=== PATIENT | female | born 1975 | race Caucasian/White ===

== ENCOUNTER 2025-02-27 14:40 | Emergency (ER) | payer BC, SELFPAY ==
[2025-02-27] VITALS (28 sets, daily range): BP systolic 113–155; BP diastolic 69–110; PULSE 81–110; RESP 7–28; TEMP 37.4; O2SAT 96–100; BMI 38.0
--- OUTSIDE RECORDS SUMMARY | 2025-02-27 14:42 | XMS_ITS | Clinical Summary ---
Author Organization [employer] [facility] Address [address] [place] [address] Care Team Providers Care Oracle Architect Name Role Phone Kavya Sharif MD Primary Care Provider [phone] Allergies No known active allergies Medications MedicationSigDispense QuantityRefillsLast FilledStart DateEnd DateStatus Adapalene 0.3 % topical gel APPLY PEA SIZE AMOUNT TO FACE DPQLWCH28/24/2025Active losartan (COZAAR) 25 mg tablet Indications:Essential hypertensionTake 1 Tablet (25 mg) by mouth once daily. 93 Tablet 5Active polyethylene glycol-electrolyte (GOLYTELY) 236-22.74-6.74 -5.86 gram suspension Indications:Encounter for screening colonoscopyDrink 2 liters (half the bottle) the day before the procedure and 2 liters (half the bottle) 6 hours prior to procedure. 4000 mL 5Active Active Problems ProblemNoted DateDiagnosed DateAcne aqcymegc36/06/2025Essential hypertension 5ASCUS of cervix with negative high risk HPV11/27/2023 Overview (01/06/2025): 2006, 2008 NIL paps 2009 ASCUS pap, neg HPV 2009, 2010 NIL Paps 2013 NIL pap, neg HPV 18 NIL pap, neg HPV 11/27/23 ASCUS pap, Neg HPV.. Plan cotest in 3 years 12/04/23 Result note sent via [employer]. Pt read results Obesity (BMI 30.0-34.9)11/18/2018 Encounters DateTypeDepartmentCare MugcGnynmabdwol60/18/2025Orders Only [facility] [address] [facility] [place] [address] Kavya Sharif MD 1 scan: (1-Ord) [facility]02/16/2025 7:36 AM EDUCATION SUPERVISOR - 02/16/2025 11:59 PM CSTHospital Encounter Dk Fox MD 02/16/2025Orders Only [facility] [address] [place] [address] Dk Fox MD <No scans attached>02/16/2025Surgery [facility] [address] [place] [address] [place] [address] Dk Fxo MD Glqocbeznur18/04/2025Telephone [facility] [address] [facility] [place] [address] Dk Fox MD Appointment Reminder (Colonoscopy on 02/16/[address] [facility]) 01/20/2025 10:00 AM CSTOffice Visit [facility] [address] [facility] [place] [address] Kavya Sharif MD Follow Up (medication/)01/20/20250159Dlavtj52/19/6741Ryjbog78/11/2025Telephone [facility] [address] [facility] [place] [address] Dk Fox MD Ikianphvu73/06/2025 11:15 AM CSTOffice Visit [facility] [address] [facility] [place] [address] Kavya Sharif MD Physical (Blood pressure)01/06/2025Travelfrom Last 3 Months Immunizations ImmunizationAdministration DatesNext DueInfluenza A (H1N1), Live Intranasal 02/20/2009Influenza Virus, Wnyubqaflbd58/07/2013,02/09/2010Influenza, IIV3 (Age >=3 years)01/09/2012,12/17/2010Influegiana, VTI694/06/2015ALEX GiffordV3 Live Intranasal (Flumist)01/22/2008Tdap103/08/2024,11/10/2010,10/10/2010Zoster (Shingrix-RZV, recombinant)01/06/2025 Family History Medical HistoryRelationNameCommentsFuchs' dystrophyFatherHypertensionFather HypertensionMotherGeneticOtherHTN, Migraines-Mom~Lazy eye-DadFuchs' dystrophy Paternal GrandmotherRelationNameStatusCommentsFatherMotherOtherPaternal Grandmother Social History Tobacco UseTypesPacks/DayYears UsedDateSmoking Tobacco: NeverPassive Smoke Exposure: NeverSmokeless Tobacco: Never Tobacco Cessation:Counseling Given: Not Answered PHQ-2AnswerDate RecordedPHQ-2 TOTAL ZHHUM59503/08/2024Social ConnectionsAnswerDate RecordedDo you often feel lonely or isolated from those around you? Alcohol UseAnswerDate RecordedHow often do you have a drink containing alcohol?1 01/06/2025How many drinks containing alcohol do you have on a typical day when you are drinking?How often do you have five or more drinks on one occasion?Financial Resource StrainAnswerDate RecordedDifficulty of Paying Living Ffgebxvh572/19/2025Difficulty of Paying Living ExpensesNot on file 01/19/2025Food InsecurityAnswerDate RecordedDo you worry your food will run out before you are able to buy more?Transportation NeedsAnswerDate RecordedDoes lack of transportation keep you from medical appointments?1 01/19/2025Does lack of transportation keep you from work, meetings or getting things that you need?Housing StabilityAnswerDate RecordedWhat is your housing situation today?UtilitiesAnswerDate RecordedDo you have trouble paying for utilities (for example, heat, electricity, water, phone)?1 01/19/2025CommentsNoSex and Gender InformationValueDate RecordedSex Assigned at BirthNot on fileLegal ZlnXpthbm03/14/2013 5:31 AM CSTGender Identity Not on fileSexual OrientationNot on file Last Filed Vital Signs Vital SignReadingTime TakenCommentsBlood Ldnzjvyr288/8201/20/2025 10:06 AM EDUCATION SUPERVISOR Mnacn927301/20/2025 10:06 AM CBSIitjvbakphm49.8 ??C (98.2 ??F)01/20/2025 10:06 AM CSTRespiratory Hlnn998510/19/2003 12:00 AM CDTOxygen Rmssdqrhqw69%01/20/2025 10:06 AM CSTInhaled Oxygen Concentration--Nomhjy917.5 kg (252 lb 6.4 oz)01/20/2025 10:06 AM UBFJkzevi816.7 cm (5' 8)01/20/2025 10:06 AM CSTBody Mass Index38.38 01/20/2025 10:06 AM EDUCATION SUPERVISOR Plan of Treatment Health MaintenanceDue DateLast DoneCommentsHepatitis C screening for age 18-79 1992Hepatitis B series for 19+ (1 of 3 - 19+ 3-dose series)1993 Pneumococcal series for age 50+ (1 of 1 - PCV)2024OVID-19 vaccine series (3 - 2024- season), 12/01/2020Influenza Vaccine (#1) /06/2015, 01/07/2013, 01/09/2012, Additional history existsZoster (shingles) series for age 50+ (2 of 2)Mammogram for age 40-75006/28/ (Verified in Care Everywhere or Patient Record) Depression screening for age 12+MI (ht and wt on same day) for age 18+, 01/06/2025Pap test for age 21-6510/05/2026 12/04/2023 (Verified in Care Everywhere or Patient Record), 11/18/2018 (Verified in Care Everywhereor Patient Record), 11/30/2004, Additional history exists Lipids for age 45-75Tetanus bklrkeh44/06/25247303/08/2024, 11/10/2010, 10/10/2010Colonoscopy through age 755104/19/2024, 02/16/2025 RSV vaccine for adults or (1 - 1-dose 75+ series)2049HIV for age 15-84Vqninaldx41/02/2007 (Verified in Care Everywhere or Patient Record) Overridden with the intention of not completing the topic Procedures Procedure NamePriorityDate/TimeAssociated DiagnosisCommentsCOLONOSCOPY SCREENING Vwtgdia5802/16/2025 12:00 AM EDUCATION SUPERVISOR Screening for colon cancer MACTFIHZHOwfxfsi16/20/2025 10:42 AM EDUCATION SUPERVISOR Essential hypertension PSXLZWHREFAvepcgv85/20/2025 10:42 AM EDUCATION SUPERVISOR Essential hypertension KYIXobgowy26/06/2025 12:32 PM EDUCATION SUPERVISOR Amenorrhea TESTOSTERONE,ONTXZXenaqav85/06/2025 12:32 PM EDUCATION SUPERVISOR Acne vulgaris TSH WITH GSWVGVHjelsva88/06/2025 12:32 PM EDUCATION SUPERVISOR Amenorrhea HEMOGLOBIN P9DOwvggep69/06/2025 12:32 PM EDUCATION SUPERVISOR Diabetes mellitus screening LIPID PANEL W REFLEX MEASURED CQVEunxyhy12/06/2025 12:32 PM EDUCATION SUPERVISOR Lipid screening URINALYSIS VBZZULRTATBNfhrhhy34/06/2025 12:32 PM EDUCATION SUPERVISOR Essential hypertension URINALYSIS MACROSCOPIC - [facility] ONLY POC DIP (QUEST)Kzpilbo2501/06/2025 12:32 PM EDUCATION SUPERVISOR Essential hypertension COMP METABOLIC YDUSAYhjttod13/06/2025 12:32 PM EDUCATION SUPERVISOR Essential hypertension GYNECOLOGICAL UQRAXDpzwt84/30/2005 3:06 PM CDT SURGICAL PROCEDURE (TYPE PROCEDURE DESCRIPTION BELOW) Encounter for screening colonoscopy from Last 3 Months or Most Recently Relevant to Health Maintenance Results * COLONOSCOPY SCREENING [[id number]] (02/16/2025 12:00 AM EDUCATION SUPERVISOR) Narrative Authorizing ProviderResult TypeResult StatusKavya PALMER PROCEDURE ORD Final Result * POTASSIUM (01/20/2025 10:42 AM EDUCATION SUPERVISOR)ComponentValueRef RangeTest MethodAnalysis TimePerformed AtPathologist SignaturePOTASSIUM4.63.5 - 5.3 mmol/L103/23/2024 3:32 AM CSTQUEST DIAGNOSTICSSpecimen (Source)Anatomical Location / Laterality Collection Method / VolumeCollection TimeReceived TimeBloodBLOOD SPECIMEN / UnknownQuest Collect / Twzscnw2201/20/2025 10:42 AM CST01/20/2025 10:42 AM EDUCATION SUPERVISOR Narrative Authorizing ProviderResult TypeResult Kristel Sharif MDCHEMISTRYFinal ResultPerforming OrganizationAddressCity/State/ZIP CodePhone Number [facility] [address] [address], * CREATININE (01/20/2025 10:42 AM EDUCATION SUPERVISOR)ComponentValueRef RangeTest MethodAnalysis TimePerformed AtPathologist SignatureCREATININE0.880.50 - 1.03 mg/dL 01/21/2025 3:32 AM CSTQUEST LPXWUBHEDPERQWM02> OR = 60 mL/min/1.64q87401/21/2025 3:32 AM CSTQUEST DIAGNOSTICSSpecimen (Source)Anatomical Location / Laterality Collection Method / VolumeCollection TimeReceived TimeBloodBLOOD SPECIMEN / UnknownQuest Collect / Udhxpxm7201/20/2025 10:42 AM CST01/20/2025 10:42 AM EDUCATION SUPERVISOR Narrative Authorizing ProviderResult TypeResult StatusKavya Sharif MDCHEMISTRYFinal ResultPerforming OrganizationAddressCity/State/ZIP CodePhone Number [facility] [address] [place] [address], [place] [phone] * (ABNORMAL) POCT Urinalysis Dipstick Only [[id number]] (01/06/2025 12:32 PM EDUCATION SUPERVISOR) ComponentValueRef RangeTest MethodAnalysis TimePerformed AtPathologist SignatureSPECIFIC GRAVITY1.0251.001 - 1.9471101/06/2025 12:44 PM [facility] OSOFYJEYVITDYOBFXESGSGWZRCNEQ99/06/2025 12:44 PM CSTMINERS' COLFAX MEDICAL CENTERGLUCOSENEGATIVENEGATIVE01/06/2025 12:44 PM [facility]ENTERKETONESNEGATIVENEGATIVE01/06/2025 12:44 PM [facility] CENTERBILIRUBINNEGATIVENEGATIVE01/06/2025 12:44 PM [facility] CENTEROCCULT BLOODTRACE(A)ZJCDLTXN10/06/2025 12:44 PM EDUCATION SUPERVISOR [facility] CENTERNITRITENEGATIVENEGATIVE01/06/2025 12:44 PM EDUCATION SUPERVISOR [facility] CLINICPH5.55.0 - 8.011 12:44 PM [facility] CENTERLEUKOCYTE ZNJOCKNEFBHEWDIXENQWIUGQ10/06/2025 12:44 PM [facility]ITALpecimen (Source)Anatomical Location / LateralityCollection Method / VolumeCollection TimeReceived TimeUrineURINE SPECIMEN / UnknownNon-Blood / Wdbfvhu2201/06/2025 12:32 PM CST01/06/2025 12:32 PM EDUCATION SUPERVISOR Narrative Authorizing ProviderResult TypeResult StatusRobyn Rosa Sharif MDURINEFinal ResultPerforming OrganizationAddressCity/State/ZIP CodePhone Number [facility] [address] [place] [address], [place] [phone] [address], [place] [phone] * (ABNORMAL) HEMOGLOBIN A1C (01/06/2025 12:32 PM EDUCATION SUPERVISOR)ComponentValueRef RangeTest MethodAnalysis TimePerformed AtPathologist SignatureHEMOGLOBIN A1C5.7(H)<5.7 %01/07/2025 3:52 AM CSTQUEST DIAGNOSTICSComment: For someone without known diabetes, a hemoglobin A1c value between 5.7% and 6.4% is consistent with prediabetes and should be confirmed with a follow-up test. For someone with known diabetes, a value <7% indicates that their diabetes is well controlled. A1c targets should be individualized based on duration of diabetes, age, comorbid conditions, and other considerations. This assay result is consistent with an increased risk of diabetes. Currently, no consensus exists regarding use of hemoglobin A1c for diagnosis of diabetes for children. Specimen (Source)Anatomical Location / LateralityCollection Method / Volume Collection TimeReceived TimeBloodBLOOD SPECIMEN / UnknownQuest Collect / Unknown 01/06/2025 12:32 PM CST01/06/2025 12:32 PM EDUCATION SUPERVISOR Narrative Authorizing ProviderResult TypeResult StatusRobyn Rosa Chante MDCHEMISTRYFinal ResultPerforming OrganizationAddressCity/State/ZIP CodePhone Number [facility] [address] [address], * TSH WITH REFLEX (01/06/2025 12:32 PM EDUCATION SUPERVISOR)ComponentValueRef RangeTest Method Analysis TimePerformed AtPathologist [facility] HospitalTS W/REFLEX TO FT42.07mIU/L 01/07/2025 4:19 AM CSTQUEST DIAGNOSTICSComment: ?Reference Range ? > or = 20 Years 0.40-4.50 ? Ranges ?First trimester ?0.26-2.66 ?Second trimester ?? 0.55-2.73 ?Third trimester ?0.43-2.91 Specimen (Source)Anatomical Location / LateralityCollection Method / Volume Collection TimeReceived TimeBloodBLOOD SPECIMEN / UnknownQuest Collect / Unknown 01/06/2025 12:32 PM CST01/06/2025 12:32 PM EDUCATION SUPERVISOR Narrative Authorizing ProviderResult TypeResult StatusRobyn Rosa Heglsharan MDCHEMISTRYFinal ResultPerforming OrganizationAddressCity/State/ZIP CodePhone Number [facility] [address] [place] [address], * (ABNORMAL) LIPID PANEL W REFLEX MEASURED LDL (01/06/2025 12:32 PM EDUCATION SUPERVISOR) ComponentValueRef RangeTest MethodAnalysis TimePerformed AtPathologist SignatureCHOLESTEROL, QMTGX347(H)<200 mg/dL01/07/2025 3:46 AM CSTQUEST JJHYXOQKVBNOAVBZQXWRVLKL913(H)<150 mg/dL01/07/2025 3:46 AM CSTQUEST DIAGNOSTICSHDL FMLXDUKSTXL89> OR = 50 mg/dL01/07/2025 3:46 AM CSTQUEST DIAGNOSTICSNON HDL BQWASRGWKBI851(H)<130 mg/dL (calc)01/07/2025 3:46 AM EDUCATION SUPERVISOR [facility]NOSTICSComment: For patients with diabetes plus 1 major ASCVD risk factor, treating to a non-HDL-C goal of <100 mg/dL (LDL-C of <70 mg/dL) is considered a therapeutic option. CHOL/HDLC RATIO4.6<5.0 (calc)01/07/2025 3:46 AM CSTQUEST DIAGNOSTICS LDL-ZVJPFLNKNMK182(H)mg/dL (calc)01/07/2025 3:46 AM CSTQUEST DIAGNOSTICSComment: Reference range: <100 Desirable range <100 mg/dL for primary prevention; <70 mg/dL for patients with CHD or diabetic patients with > or = 2 CHD risk factors. LDL-C is now calculated using the Dk-Heather calculation, which is a validated novel method providing better accuracy than the Friedewald equation in the estimation of LDL-C. Dk VELARDE et al. SAMI. 2013;310(19): 1797-4902 (http://education.[employer]faq/QWY574) Specimen (Source)Anatomical Location / LateralityCollection Method / Volume Collection TimeReceived TimeBloodBLOOD SPECIMEN / UnknownQuest Collect / Unknown 01/06/2025 12:32 PM CST01/06/2025 12:32 PM EDUCATION SUPERVISOR Narrative Authorizing ProviderResult TypeResult StatusRobyn Rosa Sharif MDCHEMISTRYFinal ResultPerforming OrganizationAddressCity/State/ZIP CodePhone Number [facility] [address] [place] [address], * URINALYSIS MICROSCOPIC [53020.1] - routine (01/06/2025 12:32 PM EDUCATION SUPERVISOR)Component ValueRef RangeTest MethodAnalysis TimePerformed AtPathologist SignatureRBC0-2 0-2, None Seen /HPF01/07/2025 12:09 AM CSTNOXUBEE GENERAL HOSPITALCENTRAL GZJJYYEESRHLO4-10-6, 3-5, None Seen /HPF01/07/2025 12:09 AM CSTNOXUBEE GENERAL HOSPITALCENTRAL LABORATORYBACTERIARareNone Seen, Rare, Few Bacteria/HPF 01/07/2025 12:09 AM CSTNOXUBEE GENERAL HOSPITALCENTRAL LABORATORYEPITHELIAL CELLSFewNone Seen, Few Epi/HPF01/07/2025 12:09 AM [facility] CENTRAL LABORATORYHYALINE CASTS0-20-2, 3-5 /LPF103/09/2024 12:09 AM [facility] LABORATORYSpecimen (Source)Anatomical Location / LateralityCollection Method / VolumeCollection TimeReceived TimeUrineURINE SPECIMEN / UnknownNon-Blood / Zfxejye0901/06/2025 12:32 PM CST01/06/2025 12:32 PM EDUCATION SUPERVISOR Narrative Authorizing ProviderResult TypeResult StatusRobyn Rosa Sharif MDURINEFinal ResultPerforming OrganizationAddressCity/State/ZIP CodePhone Number [facility] [address] [address], * TESTOSTERONE,TOTAL (01/06/2025 12:32 PM EDUCATION SUPERVISOR)ComponentValueRef RangeTest Method Analysis TimePerformed AtPathologist SignatureTESTOSTERONE, TOTAL, MS312 - 45 ng/dL01/10/2025 3:32 PM CSTQUEST DIAGNOSTICSComment: For additional information, please refer to https://education.[employer]/faq/TotalTestosteroneLCMSMS (This link is being provided for informational/educational purposes only.) (Note) This test was developed and its analytical performance characteristics have been determined by [facility]. It has not been cleared or approved by the FDA. This assay has been validated pursuant to the CLIA regulations and is used for clinical purposes. [facility] [address] [facility] [address] [place] [address] Vignesh Ryan MD, PhD Specimen (Source)Anatomical Location / LateralityCollection Method / Volume Collection TimeReceived TimeBloodBLOOD SPECIMEN / UnknownQuest Collect / Unknown 01/06/2025 12:32 PM CST01/06/2025 12:32 PM EDUCATION SUPERVISOR Narrative Authorizing ProviderResult TypeResult StatusRobyn Rosa Hegland MDCHEMISTRYFinal ResultPerforming OrganizationAddressty/State/ZIP CodePhone Number [facility] [address] [place] [address], * FSH (01/06/2025 12:32 PM EDUCATION SUPERVISOR)ComponentValueRef RangeTest MethodAnalysis Time Performed AtPathologist ExwnmnrylXQB24.8mIU/mL01/07/2025 4:19 AM CSTQUEST DIAGNOSTICSComment: ?Reference Range ? Follicular Phase ? 2.5-10.2 ? Mid-cycle Peak ? 3.1-17.7 ? Luteal Phase ? 1.5- 9.1 ? Postmenopausal ? 23.0-116.3 ? Specimen (Source)Anatomical Location / LateralityCollection Method / Volume Collection TimeReceived TimeBloodBLOOD SPECIMEN / UnknownQuest Collect / Unknown 01/06/2025 12:32 PM CST01/06/2025 12:32 PM EDUCATION SUPERVISOR Narrative Authorizing ProviderResult TypeResult StatusRobyn Rosa Hegland MDCHEMISTRYFinal ResultPerforming OrganizationAddressty/State/ZIP CodePhone Number [facility] [address] [place] [address], [place] [phone] * (ABNORMAL) COMP METABOLIC PANEL (01/06/2025 12:32 PM EDUCATION SUPERVISOR)ComponentValueRef RangeTest MethodAnalysis TimePerformed AtPathologist UgmpecbeyGEQKAS219765 - 146 mmol/L103/09/2024 3:46 AM CSTQUEST DIAGNOSTICSPOTASSIUM4.53.5 - 5.3 mmol/L 01/07/2025 3:46 AM CSTQUEST KCSHSFCFGVHYVKLPORC92566 - 110 mmol/L103/09/2024 3:46 AM CSTQUEST DIAGNOSTICSCARBON OLQYNAU7157 - 32 mmol/L103/09/2024 3:46 AM CSTQUEST IBSCILCWPERNRARCFB6467 - 99 mg/dL01/07/2025 3:46 AM CSTQUEST DIAGNOSTICSComment: ? Fasting reference interval OBJEOKZ39.08.6 - 10.4 mg/dL01/07/2025 3:46 AM CSTQUEST DIAGNOSTICSCREATININE0.91 0.50 - 1.03 mg/dL01/07/2025 3:46 AM CSTQUEST DIAGNOSTICSBUN/CREATININE RATIOSEE NOTE:6 - 22 (calc)01/07/2025 3:46 AM CSTQUEST DIAGNOSTICSComment: ?? Not Reported: BUN and Creatinine are within ?? reference range. ? EGFR77> OR = 60 mL/min/1.72g76701/07/2025 3:46 AM CSTQUEST DIAGNOSTICSALBUMIN5.0 3.6 - 5.1 g/dL01/07/2025 3:46 AM CSTQUEST DIAGNOSTICSPROTEIN, TOTAL8.06.1 - 8.1 g/dL01/07/2025 3:46 AM CSTQUEST DIAGNOSTICSBILIRUBIN, TOTAL0.60.2 - 1.2 mg/dL 01/07/2025 3:46 AM CSTQUEST DIAGNOSTICSALKALINE PJAPLBHDNIC3782 - 153 U/L 01/07/2025 3:46 AM CSTQUEST CMFMALYWGWEXXR78(H)6 - 29 U/L103/09/2024 3:46 AM EDUCATION SUPERVISOR [facility] KSOFXSJLLFFCOE6164 - 35 U/L103/09/2024 3:46 AM CSTQUEST DIAGNOSTICSUREA NITROGEN (BUN)197 - 25 mg/dL01/07/2025 3:46 AM CSTQUEST DIAGNOSTICSGLOBULIN3.0 1.9 - 3.7 g/dL (calc)01/07/2025 3:46 AM CSTQUEST DIAGNOSTICSALBUMIN/GLOBULIN RATIO1.71.0 - 2.5 (calc)01/07/2025 3:46 AM CSTQUEST DIAGNOSTICSSpecimen (Source) Anatomical Location / LateralityCollection Method / VolumeCollection Time Received TimeBloodBLOOD SPECIMEN / UnknownQuest Collect / Ativkcr7601/06/2025 12:32 PM CST01/06/2025 12:32 PM EDUCATION SUPERVISOR Narrative Authorizing ProviderResult TypeResult StatusRobyn Rosa Hegland MDCHEMISTRYFinal ResultPerforming OrganizationAddressCity/State/ZIP CodePhone Number [facility] [address] [place] [address], * GYNECOLOGICAL PANEL (11/30/2004 3:06 PM CDT)ComponentValueRef RangeTest Method Analysis TimePerformed AtPathologist SignatureCYTOLOGY??CYTOPATHOLOGY REPORT ??[facility] ??[facility] [address] [place] [address] ? Status: Final Report ?[id number] ?? CLINICAL INFORMATION ?Reason for Visit ?: Routine ?LMP ? : 01/19/04 ?Previous PAP Test ? : Yes ?Previous PAP Date ? : 03/2004 ?Previous PAP Dx ? : Negative ?Previous Colposcopy/Bx: Not specified ?Hormone Usage ? : Not given ?Additional Data ? : 6 weeks ?HPV Request ? : Reflex HPV test if PAP Dx ASCUS ?? SPECIMEN SOURCE ?: Cervical/vaginal thin, screening ?? SPECIMEN ADEQUACY ?: Satisfactory for evaluation No endocervical ?component seen in a patient. ? INTERPRETATION/RESULT: ?Negative for intraepithelial lesion or malignancy. ?Organisms ?Fungal organisms morphologically consistent with Geeta species ? Cytology 1st Screener : ??ll ?? Signed by: ? ll ?? NOTE: The Pap test is a screening technique, not a diagnostic ?? procedure. It is used primarily to screen for squamous cancers and ?? precursor lesions. Published studies have shown that it is subject to ?? both false negative and false positive results. The pap test should ?? not be used as the sole means to diagnose or exclude pre-malignant and ?? malignant lesions. ?? COLLECTED: 11/30/04 ?? ACCESSIONED: 12/03/04 ?? SIGNED: 12/10/04[facility]ITALpecimen (Source)Anatomical Location / LateralityCollection Method / VolumeCollection TimeReceived Time11/30/2004 3:06 PM CDT1 6:51 AM CDT Narrative Authorizing ProviderResult TypeResult StatusCaroline Uzma Reinoso MD PATHOLOGY/CYTOLOGYFinal ResultPerforming OrganizationAddressCity/State/ZIP Code Phone Number [facility] INTERNAL ZIP [address] [address] from Last 3 Months or Most Recently Relevant to Health Maintenance Insurance [place] [address] Care Teams Team MemberRelationshipSpecialtyStart DateEnd Date Kavya Sharif MD [address] [place] [address] PCP - GeneralFamily Ebooraiv73/6/25
--- OUTSIDE RECORDS SUMMARY | 2025-02-27 14:42 | XMS_ITS | Clinical Summary ---
Author Organization [facility] Address [address] [place] [address]. [place] [address] Care Team Providers Care Tinter Photograph Name Role Phone Frw, None Unavailable Unavailable No Ref-Primary, Physician Primary Care Provider Anjali Dave Jodie DO Unavailable [phone] Allergies No known active allergies Medications MedicationSigDispense QuantityRefillsLast FilledStart DateEnd DateStatus norethindrone-ethinyl estradiol-iron () 1.5-30 MG-MCG tablet Indications:Routine general medical examination at a health care facilityTake 1 tablet by mouth daily 84 tablet ctive Additional Information Patient not taking.Reported on 11/27/2023 Active Problems ProblemNoted DateDiagnosed DateASCUS of cervix with negative high risk HPV 11/27/2023 Overview (12/04/2023): 2005, 2008 NIL paps 2009 ASCUS pap, neg HPV 2009, 2010 NIL Paps 2013 NIL pap, neg HPV 11/18/18 NIL pap, neg HPV 11/27/23 ASCUS pap, Neg HPV.. Plan cotest in 3 years 12/04/23 Result note sent via [employer]. Pt read results Obesity (BMI 30.0-34.9)11/18/2018Encounter for supervision of other normal edsqyhrmj58/29/2007 Overview (01/02/2015): Diagnosis updated by automated process. Provider to review and confirm. GROUP B STREPTOCOCCUS DRQHHXN5712/08/2006 Overview (12/08/2006): +GBS with initial UA: Antibiotics per protocol in labor Immunizations ImmunizationAdministration DatesNext DueTDAP Vaccine (Adacel)10/10/2010 Family History Medical HistoryRelationCommentsHypertensionMaternal GrandfatherHypertension Maternal GrandmotherCerebrovascular DiseasePaternal GrandfatherDiabetesPaternal GrandfatherHypertensionPaternal GrandfatherHypertensionPaternal Grandmother Alzheimer DiseaseNo family hx ofBreast CancerNo family hx ofCancerNo family hx ofCancer - colorectalNo family hx ofHeart DiseaseNo family hx ofThyroid Disease No family hx ofreviewed 02/07/2006RelationStatusCommentsBrotherAliveFatherAlive Maternal GrandfatherMaternal GrandmotherMotherAlivePaternal GrandfatherPaternal Grandmother Social History Tobacco UseTypesPacks/DayYears UsedDateSmoking Tobacco: NeverSmokeless Tobacco: Never Tobacco Cessation:Counseling Given: No Alcohol UseStandard Drinks/WeekCommentsYes0 (1 standard drink = 0.6 oz pure alcohol)once q month sociallyAUDIT-CAnswerDate RecordedQ1: How often do you have a drink containing alcohol?Monthly or less12/29/2019Q2: How many drinks containing alcohol do you have on a typical day when you are drinking?1 or 2 12/29/2019Q3: How often do you have six or more drinks on one occasion?Never 12/29/2019PHQ-2AnswerDate RecordedPHQ-2 Kfbzd8634Adolescent Education AnswerDate RecordedGetting School Help NeededNot on file3 CommentsNoSex and Gender InformationValueDate RecordedSex Assigned at Dbtiun1011/11/2018 7:42 AM CDTLegal VmfHaqejs32/04/2012 3:53 AM CSTGender Identity Ftsoba3011/11/2018 7:42 AM CDTSexual HisnllbxdouPurximea77/11/2019 7:43 AM CDT OccupationIndustryJob Start DateJob End DateaccountantNot on fileNot on fileNot on fileNot on fileNot on fileNot on fileNot on file Last Filed Vital Signs Vital SignReadingTime TakenCommentsBlood Dctfcymz069/98011/27/2023 10:47 AM CDT Qfhon767303/23/2021 9:56 AM LGMMtlufkxctob43.8 ??C (98.2 ??F)12/29/2019 3:05 PM CDTRespiratory Rate--Oxygen Ofpktxdhxr47%12/29/2019 3:05 PM CDTInhaled Oxygen Concentration--Hrybmu779.6 kg (254 lb 12.8 oz)11/27/2023 10:47 AM PRGAktubb609.7 cm (5' 8)11/27/2023 10:47 AM CDTBody Mass Index38.7411/27/2023 10:47 AM CDT Plan of Treatment Health MaintenanceDue DateLast DoneCommentsADVANCE CARE VQUDNWNV78/26/1975CT KDENRXMAHCSG64/26/1975DIABETES ZBLFXLXCO52/26/4511GSE03 1974FLEX SIG 1974sDNA (Cologuard)1974 9082JRMZDDBGODH51/26/1985COLORECTAL CANCER DKKDRMJEB93/26/1985HEPATITIS C FHYPSZEXG96/26/1993HEPATITIS B VACCINE (1 of 3 - 19+ 3-dose series)06/26/19930564GKBYK47DTAP/TDAP/TD VACCINE (2 - Td or Tdap)/NNUAL REVIEW OF HM CJTOOD43, 11/18/2018PHQ-2 (once per calendar year), 05/07/2022, 03/23/2021, Additional history existsPNEUMOCOCCAL VACCINE 50+ YEARS (1 of 1 - PCV)2024ZOSTER VACCINE (1 of 2)2024OVID-19 VACCINE (3 - 2024- season), 12/01/2020INFLUENZA VACCINE (#1)5YEARLY PREVENTIVE VISIT5011/27/2023, 05/07/2022, 03/23/2021, Additional history existsMAMMO VVNAYMTBS20/28/, 2023, 05/21/2022, Additional history existsHPV FOLLOW-UP, 11/18/2018PAP FOLLOW-UP , 11/27/2023, 11/18/2018, Additional history existsHIV FHJPNNFSHMlutrwocf21/02/5416HHKHuboxdzxyppe35/26/2024, 11/27/2023, 11/18/2018, Additional history existsHPV VACCINE (No Doses Required)CompletedMENINGITIS VACCINEAged OutNo longer eligible based on patient's age to complete this topic Procedures Procedure NamePriorityDate/TimeAssociated DiagnosisCommentsMA SCREENING BILATERAL W/ LBTHBhqiubi02/28/2025 10:52 AM CDT Visit for screening mammogram HPV AND GYNECOLOGIC CYTOLOGY GUTWOLxhiujl12/26/2024 11:36 AM CDT Pap smear for cervical cancer screening CL AFF A.M.A. LIPID OCWYGAlodwuo45/19/2009 9:11 AM CDT Lipid Screening HCL HIV 1 & 2 ECKMXEPHMrjbbmg52/02/2007 2:21 PM CDT Supervis Other Normal Preg from Last 3 Months or Most Recently Relevant to Health Maintenance Results * MA Screening Bilateral w/ Shmuel (06/28/2024 10:52 AM CDT)Anatomical Region LateralityModalityBreastBilateralMammographySpecimen (Source)Anatomical Location / LateralityCollection Method / VolumeCollection TimeReceived Time Impressions 06/28/2024 1:24 PM CDT IMPRESSION: ACR BI-RADS Category 1: Negative BREAST CANCER SCREENING RECOMMENDATION: Routine yearly mammography beginning at age 40 or as discussed with your provider. The results and recommendations of this examination will be communicated to the patient. Abdulkadir Lehman MD Narrative 06/28/2024 1:24 PM CDT BILATERAL FULL FIELD DIGITAL SCREENING MAMMOGRAM WITH TOMOSYNTHESIS Performed on: 06/28/24 Compared to: 2023 and 12/05/2015 Technique: ??This study was evaluated with the assistance of Computer-Aided Detection. ??Breast Tomosynthesis was used in interpretation. Findings: The breasts are heterogeneously dense, which may obscure small masses. ??There is no radiographic evidence of malignancy. Authorizing ProviderResult TypeResult StatusPhysician No Ref-PrimaryIMG MAMMOGRAPHY ORDERABLESFinal Result * HPV and Gynecologic Cytology Panel ??? Recommended Age 30-65 Years (11/27/2023 11:36 AM CDT)ComponentValueRef RangeTest MethodAnalysis TimePerformed At Pathologist Critical access hospital Papilloma Virus 16 ZIKYllhaxjkFzqbztwa44/27/2024 1:05 PM CDTUM [facility] Papilloma Virus 18 DNANegativeNegative 11/28/2023 1:05 PM CDTUM SPECIALTY LABSman Papilloma Virus OtherNegative Budsdaiw85/27/2024 1:05 PM CDTUM SPECIALTY LABSFINAL DIAGNOSISThis patient's sample is negative for high risk HPV DNA. METHODOLOGY: The [employer] system uses automated extraction, simultaneous amplification of HPV (E6/E7 oncogenes) and beta-globin, followed by real time detection of fluorescent labeled HPV and beta globin using specific oligonucleotide probes. The test specifically identifies types HPV 16 DNA and HPV 18 DNA while concurrently detecting the rest of the high risk types (31, 33, 35, 39, 45, 51, 52, 56,58, 59, 66 or 68). COMMENTS: This test is not intended for use as a screening device for woman under age 30 with normal cervical cytology. Results should be correlated with cytologic and histologic findings. Close clinical follow up is recommended. Please see the separate Gynecologic Cytology (Pap) report from the same collection date.11/28/2023 1:05 PM CDTUM MOLECULAR DIAGNOSTICSSpecimen (Source) Anatomical Location / LateralityCollection Method / VolumeCollection Time Received TimeBrushingENDOCERVICAL STRUCTURE / UnknownNon-blood Collection / Nynezdb9011/27/2023 11:36 AM CDT11/27/2023 11:59 AM CDT Narrative Authorizing ProviderResult TypeResult StatusSylvesterm Jodie Dave DOLAB - BLOOD ORDERABLESFinal ResultPerforming OrganizationAddressCity/State/ZIP CodePhone Number [facility] [address], [address] [place] [address], [facility] [address] [facility] [address] [facility], Room [address] [id number] * A.M.A. LIPID PANEL (10/19/2008 9:11 AM CDT)ComponentValueRef RangeTest Method Analysis TimePerformed AtPathologist PymqzxgnjMfanbvrpwhb9830 - 200 mg/dL [facility]/RADComment: LDL Cholesterol is the primary guide to therapy: LDL-cholesterol goal in high risk patients is <100 mg/dL and in very high risk patients is <70 mg/dL. The NCEP recommends further evaluation of: patients with cholesterol <200 mg/dL if additional risk factors are present, cholesterol >240 mg/dL, triglycerides >150 mg/dL, or HDL <40 mg/dL. Hxjebanjlpdwq5564 - 150 mg/dLFAIRVIEW [facility]ING LAB/RADHDL Wyfvnvhqcdl1846 - 110 mg/dLFAIRVIEW [facility] LAB/RADLDL Cholesterol Tlanuuqkvy4044 - 129 mg/dLFAIRSELECT [facility]/RADVLDL-Qawzlvazuuv643 - 30 mg/dLFAIRSELECT [facility] Cholesterol/HDL Ratio3.40.0 - 5.0[facility]/RADSpecimen (Source) Anatomical Location / LateralityCollection Method / VolumeCollection Time Received Time10/19/2008 9:11 AM CDT10/19/2008 9:12 AM CDT Narrative Authorizing ProviderResult TypeResult StatusBlaze Lott MDLABORATORYFinal ResultPerforming OrganizationAddressCity/State/ZIP CodePhone Number [facility] [address] * HIV Screening (12/02/2006 2:21 PM CDT)ComponentValueRef RangeTest Method Analysis TimePerformed AtPathologist SignatureHIV 1&2 AntibodyNegativeNEG [facility]ERSpecimen (Source)Anatomical Location / LateralityCollection Method / VolumeCollection TimeReceived Time 12/02/2006 2:21 PM CDT1 2:22 PM CDT Narrative Authorizing ProviderResult TypeResult StatusSangeeta Yu NPLABORATORYFinal ResultPerforming OrganizationAddressCity/State/ZIP CodePhone Number [facility] [address] [place] [address] from Last 3 Months or Most Recently Relevant to Health Maintenance Insurance Care Teams Team MemberRelationshipSpecialtyStart DateEnd Date Frw, None PCP - Obstetrics/GynecologyFamily Practice05/30/11 No Ref-Primary, Physician PCP - General11/18/18 Anjali Dave DO [address] [place] [address] Assigned OBGYN Bvybxqsm46/23/24
--- NOTE | 2025-02-27 15:02 | ED.UPPEXIN ---
HPI - Extremity Injury (Upper) General Date Seen: 02/27/25 Chief Complaint: Extremity Pain/Injury, Upper Stated Complaint: broken L arm Time Seen by Provider: 02/27/25 15:02 Source: patient, RN notes reviewed and old records reviewed Mode of arrival: ambulatory Limitations: no limitations History of Present Illness HPI narrative: Fawn is a very pleasant 49-year-old previously healthy who comes to the emergency room from urgent care after was discovered that she sustained a left wrist fracture with dorsal angulation. Unfortunately patient slipped on the ice last night. She was able to get her wedding ring off. She has a bruising in the area of the wrist. She presented to urgent care at which time they noted a fracture with dorsal angulation. She rates her pain a 7/10. Definitely worse with movement. Denies any numbness or tingling or any other injury. Related Data Home Medications ?Medication ?Instructions ?Recorded ?Confirmed adapalene 0.3 % topical gel topical QPM 02/27/25 02/27/25 losartan 25 mg tablet 25 mg PO DAILY 02/27/25 02/27/25 Allergies Allergy/AdvReac Type Severity Reaction Status Date / Time No Known Drug Allergies Allergy Verified 02/27/25 13:59 Review of Systems Status of ROS: Reports: 6 or more systems reviewed and unremarkable except as noted in History and below Const: Denies: fever or chills ENMT: Denies: throat pain or nasal congestion Cardio: Denies: chest pain or shortness of breath with exertion Resp: Denies: shortness of breath or cough Exam Narrative: Exam Narrative: Alert and oriented. Very pleasant woman. Appears to be in no acute distress. External ears eyes nose clear. Oral cavity with moist mucous membranes. No partial is noted. Will to visualize posterior oropharynx without difficulty. Neck is supple. Heart with a regular rate and rhythm. Lungs are clear. Abdomen soft. Examination of the left wrist shows mild dorsal angulation. Edema noted. Ecchymosis noted on the volar surface. Tenderness noted over the dorsum of the wrist. Distally she has edema of all of her digits. She is able to flex extend without difficulty sensation is intact as is capillary refill. Const: Vital Signs, click to edit/add: Vital Signs - 24 hr 02/27/25 14:43 02/27/25 16:00 02/27/25 16:11 Temperature 99.3 F Pulse Rate 106 H Pulse Rate [Pulse Oximeter] 110 H Respiratory Rate 20 16 Blood Pressure 155/110 H Blood Pressure [Ri ght Upper Arm] 143/82 H Pulse Oximetry 97 99 100 Oxygen Delivery Me thod Room Air Nasal Cannula Nasal Cannula Oxygen Flow Rate 2 2 02/27/25 16:12 02/27/25 16:13 02/27/25 16:15 Temperature Pulse Rate 101 H 98 102 H Pulse Rate [Pulse Oximeter] Respiratory Rate 16 21 23 Blood Pressure 144/89 H Blood Pressure [Ri ght Upper Arm] Pulse Oximetry 99 97 97 Oxygen Delivery Me thod Oxygen Flow Rate 02/27/25 16:16 02/27/25 16:20 02/27/25 16:23 Temperature Pulse Rate 101 H 93 94 Pulse Rate [Pulse Oximeter] Respiratory Rate 20 10 L 19 Blood Pressure 145/87 H 144/86 H 137/108 H Blood Pressure [Ri ght Upper Arm] Pulse Oximetry 96 98 99 Oxygen Delivery Me thod Oxygen Flow Rate 02/27/25 16:26 02/27/25 16:29 02/27/25 16:30 Temperature Pulse Rate 92 87 87 Pulse Rate [Pulse Oximeter] Respiratory Rate 12 14 18 Blood Pressure 142/84 H 140/84 H Blood Pressure [Ri ght Upper Arm] Pulse Oximetry 98 99 98 Oxygen Delivery Me thod Oxygen Flow Rate 02/27/25 16:32 02/27/25 16:35 02/27/25 16:38 Temperature Pulse Rate 84 82 81 Pulse Rate [Pulse Oximeter] Respiratory Rate 18 18 14 Blood Pressure 141/83 H 139/69 133/76 Blood Pressure [Ri ght Upper Arm] Pulse Oximetry 99 99 99 Oxygen Delivery Me thod Oxygen Flow Rate 02/27/25 16:41 02/27/25 16:44 02/27/25 16:45 Temperature Pulse Rate 90 89 85 Pulse Rate [Pulse Oximeter] Respiratory Rate 20 18 15 Blood Pressure 131/75 142/77 H Blood Pressure [Ri ght Upper Arm] Pulse Oximetry 99 98 98 Oxygen Delivery Me thod Room Air Oxygen Flow Rate 02/27/25 16:47 02/27/25 16:50 Temperature Pulse Rate 86 86 Pulse Rate [Pulse Oximeter] Respiratory Rate 13 19 Blood Pressure 140/71 H 144/84 H Blood Pressure [Ri ght Upper Arm] Pulse Oximetry 98 98 Oxygen Delivery Me thod Oxygen Flow Rate Course Course ED Course: I was called by urgent care in regards to this patient and therefore was able to visualize x-rays which did show dorsal angulation of a comminuted wrist fracture. Patient has not had any food today. Her last drink of water was approximately 2 hours ago. Will ask Anesthesia to help us in this endeavor to sedate patient for attempt reduction. I also had the pleasure of speaking to Orthopedics about this patient. Unfortunately, they do note some thinning of the wrist bones and are concerned that she would not be able to tolerate a plate. They have asked me to send her to 1 of the larger orthopedic groups in the [facility] for follow-up. Vital Signs Vital signs: Initial Vital Signs Temperature 99.3 F 02/27/25 14:43 Temperature Source Temporal Artery Scan 02/27/25 14:43 Pulse Rate 110 H 02/27/25 14:43 Respiratory Rate 20 02/27/25 14:43 Blood Pressure 143/82 H 02/27/25 14:43 Blood Pressure Mean 102 02/27/25 14:43 Blood Pressure Position Sitting 02/27/25 14:43 Pulse Oximetry 97 02/27/25 14:43 Oxygen Delivery Method Room Air 02/27/25 14:43 Vital Signs Temperature 99.3 F 02/27/25 14:43 Pulse Rate 110 H 02/27/25 14:43 Respiratory Rate 20 02/27/25 14:43 Blood Pressure 143/82 H 02/27/25 14:43 Pulse Oximetry 97 02/27/25 14:43 Oxygen Delivery Method Room Air 02/27/25 14:43 Temperature 99.3 F 02/27/25 14:43 Pulse Rate 86 02/27/25 16:50 Respiratory Rate 19 02/27/25 16:50 Blood Pressure 144/84 H 02/27/25 16:50 Pulse Oximetry 98 02/27/25 16:50 Oxygen Delivery Method Room Air 02/27/25 16:41 Oxygen Flow Rate 2 02/27/25 16:11 MDM - Extremity Injury (Upper) MDM Narrative Medical decision making narrative: 1. Left wrist fracture status post reduction-patient tolerated procedure well. DOG DAY CARE ATTENDANT assisted us in this endeavor. Post reduction films improved. CMS intact post reduction. Pain control will be with Tylenol or ibuprofen. For pain not relieved by alef-qjv-qkakdla medications, I have given her 10 tablets of oxycodone 5 mg out of our [employer] meds machine. She may take 1/2-2 tablets every 4-6 hours as needed. Did warn her about the constipating effects as well as tendency to cause dizziness or nausea. Recommend use of stool softener if on this medication. 2. Foreign body-volar foreign body noted on the initial films from urgent care. I did re-examine the wrist N/C no open skin. Post reduction films foreign body is absent. 3. Disposition-patient will be discharged home. Orthopedic consultation with our own group. Unfortunately patient does have some thinning of the cortical bone and there was concern regarding need for specialty consultation. She will be referred to a larger group of her choice including [facility], [facility] or [place]. Will have her return for worsening symptoms. Medical Records Attestation: I reviewed the patient's medical records. Medical records narrative: Urgent care note as well as radiological review from earlier today. Imaging Data Post reduction wrist x-ray left: Attestation: I have reviewed the pertinent imaging results. My impression: Dorsal angulation reduced. Radiologist's impression: There has been interval reduction of the previously visualized right distal radius fracture, as well as interval casting of the left wrist. There is interval improved alignment of the fracture fragments on the lateral view. There is mild residual lateral angulation of the fracture fragments on the frontal view. The ulnar styloid fracture is unchanged in alignment. Discharge Plan Discharge Clinical Impression: Fracture of left wrist Qualifiers: Encounter type: initial encounter Fracture type: closed Qualified Code(s): S62.102A - Fracture of unspecified carpal bone, left wrist, initial encounter for closed fracture Patient Disposition: Home, Self-Care Condition: Improved Additional Instructions: Follow-up with [facility] or [facility] for your wrist fracture. There is concern regarding location of the fractures. Therefore, our orthopedic team wanted you to seek specialty care. Tylenol or ibuprofen as needed for discomfort. I have written for a small amount of oxycodone which is a narcotic that you may use if pain still significant after Tylenol or ibuprofen. Remember this is constipating and you may want to start a stool softener if using this medication. Try your best to keep your arm elevated. We will provide a sling. You are in danger of falling again as you use your arms for balance. Be Very careful if your walking outside. Prescriptions: No Action losartan 25 mg tablet 25 mg PO DAILY adapalene 0.3 % gel topical QPM Follow Up/Referrals: Provider,Not a Local [Primary Care Provider, Family Practice] Stand Alone Forms: [employer] Info Instructions Procedures Orthopedic Fracture Reduction Fracture #1: Written consent by: patient Time Out Performed: Yes Side: left Fracture location: radius + ulna Analgesia: procedural sedation Technique: direct manipulation and finger traps Post Reduction X-rays Demonstrate: acceptable reduction Post-reduction neuro exam: intact Post-reduction vascular exam: intact Splint Applied: Yes Patient Tolerated Procedure: well Additional Comments: Assisted by DOG DAY CARE ATTENDANT with ketamine 30 mg for pain control and propofol fall for sedation.
--- NOTE | 2025-02-27 16:13 | CRLHL7_ITS ---
For Patients: As a result of the Century Cures Act, medical imaging exams and procedure reports are released immediately into your electronic medical record. You may view this report before your referring provider. If you have questions, please contact your health care provider. INDICATION: Left wrist postreduction TECHNIQUE: X-ray left wrist two views COMPARISON: Left wrist x-ray 02/27/2025 FINDINGS/IMPRESSION: There has been interval reduction of the previously visualized right distal radius fracture, as well as interval casting of the left wrist. There is interval improved alignment of the fracture fragments on the lateral view. There is mild residual lateral angulation of the fracture fragments on the frontal view. The ulnar styloid fracture is unchanged in alignment. Dictated by Chris Hilario MD @ 02/27/2025 4:34:18 PM (Electronically Signed)
--- NOTE | 2025-02-27 16:42 | P.ANES_ITS ---
Anesthesia Charges Start Date/Time Anesthesia Start Date: 02/27/25 Anesthesia Start Time: 16:05 Stop Date/Time Anesthesia Stop Date: 02/27/25 Anesthesia Stop Time: 16:22 Summary Emergency: BABBITT SPINNER Coding CPT Codes CPT Codes: ANESTH LOWER ARM PROCEDURE - 93128 ([id number]) P2 - PATIENT W/MILD SYST DISEASE, QZ - BABBITT SPINNER SVC W/O STRAIGHT TOOTH GEAR GENERATOR OPERATOR BY Additional Codes: Summary - Emergency: BABBITT SPINNER ([id number])
--- NOTE | 2025-02-27 16:42 | W.ANESCHARGE ---
Anesthesia Charges Start Date/Time Anesthesia Start Date: 02/27/25 Anesthesia Start Time: 16:05 Stop Date/Time Anesthesia Stop Date: 02/27/25 Anesthesia Stop Time: 16:22 Summary Emergency: ROD FILLER Coding CPT Codes CPT Codes: ANESTH LOWER ARM PROCEDURE - 32720 ([id number]) P2 - PATIENT W/MILD SYST DISEASE, QZ - ROD FILLER SVC W/O FLOAT PHLEBOTOMIST BY Additional Codes: Summary - Emergency: ROD FILLER ([id number])
== END 2025-02-27 17:23 | disposition home or self-care (01) ==
PROVIDERS: Emergency Provider Family Medicine
DX: S52.572A Other intraarticular fracture of lower end of left radius, initial encounter for closed fracture (principal); S52.612A Displaced fracture of left ulna styloid process, initial encounter for closed fracture; W00.0XXA Fall on same level due to ice and snow, initial encounter; Y93.01 Activity, walking, marching and hiking
CPT/HCPCS: 01820; 25535; 25605; 73100; 99140; 99284; 99285